=== PATIENT | female | born 1955 | race Caucasian/White ===

== ENCOUNTER → 2024-11-21 | Outpatient (CLI) | payer MEDICARE, BC, SELFPAY ==
--- NOTE | 2024-11-21 08:15 | XR_ITS ---
Examination: Screening digital mammography, bilateral Computer aided detection 3-D breast Tomosynthesis, bilateral Date and time of exam: 11/21/2024, 8:05 AM Comparisons: 11/21/2023 Indications: Screening Technique: Nonmagnified MLO, CC views of the breasts to been obtained, reconstructed from 3-D Tomosynthesis images. R2 computer aided detection program utilized for evaluation of suspicious masses and/or abnormal calcifications. 3-D Tomosynthesis images obtained. Technologist: Findings: There are scattered areas of fibroglandular density. No evidence of abnormal masses or suspicious calcifications. Impression: BI-RADS category 1: Negative findings (within normal) Recommend 1 year follow-up mammogram
== END | disposition home or self-care (01) ==
LOC: CDIM 07:57
PROVIDERS: Referring Provider Specialist; Visit Provider Specialist
DX: Z12.31 Encounter for screening mammogram for malignant neoplasm of breast (principal); R92.313 Mammographic fatty tissue density, bilateral breasts
CPT/HCPCS: 77063; 77067

== ENCOUNTER → 2025-03-30 | Outpatient (CLI) | payer MEDICARE, BC, SELFPAY ==
[2025-03-30 15:26] LABS: Basophils # (Auto) 0.1 Thou/mm3 (0.0-0.2); Basophils % (Auto) 1 % (0-2.5); Eosinophils # (Auto) 0.2 Thou/mm3 (0.0-0.5); Eosinophils % (Auto) 2 % (0-10); Hematocrit 36.4 % (36.0-46.0); Hemoglobin 12.3 g/dL (12.0-16.0); Immature Granulocytes Auto 0.02 Thou/mm3 (0.00-0.00); Lymphocytes # (Auto) 3.3 Thou/mm3 (1.0-4.8); Lymphocytes % (Auto) 43 % (10-50); Mean Corpuscular HGB Conc 33.8 g/dl (31.0-37.0); Mean Corpuscular Hemoglobin 31.2 pg (25.0-35.0); Mean Corpuscular Volume 92 fL (80-100); Monocytes # (Auto) 0.6 Thou/mm3 (0.0-0.8); Monocytes % (Auto) 7 % (0-12); Neutrophils # (Auto) 3.6 Thou/mm3 (1.8-7.7); Neutrophils % (Auto) 47 % (37-80); Nucleated Red Blood Cell # 0.00 Thou/mm3 (0.00-0.00); Nucleated Red Blood Cell % 0 /100 WBC (0); Platelet Count 214 Thou/mm3 (140-440); RDW Standard Deviation 42.2 fL (36.4-46.3); Red Blood Count 3.94 Miln/mm3 (4.00-5.20); White Blood Count 7.6 Thou/mm3 (3.6-11.0)
[2025-03-30 15:42] LABS: Alanine Aminotransferase 32 U/L (10-49); Albumin, Serum 4.6 gm/dL (3.4-4.8); Albumin/Globulin Ratio 2.6 (1.2-2.2); Alkaline Phosphatase 97 U/L (46-116); Anion Gap 10 (7-16); Aspartate Amino Transferase 30 U/L (0-34); BUN/Creatinine Ratio 18 Ratio (12-20); Bilirubin,Total 0.6 mg/dL (0.3-1.2); Blood Urea Nitrogen 14 mg/dL (9-23); Calcium 10.3 mg/dL (8.3-10.6); Calcium (Corrected) 10.3 mg/dL (8.5-10.1); Carbon Dioxide 25.8 mMol/L (20.0-31.0); Cardiac Risk Estimate 4.7 RATIO (3.7-5.6); Chloride 105 mMol/L (98-107); Cholesterol 206 mg/dL (132-200); Creatinine (Component) 0.8 mg/dL (0.6-1.3); Free T4 (Free Thyroxine) 1.37 ng/dL (0.89-1.76); Globulin 1.8 gm/dL (2.3-3.5); Glucose 91 mg/dL (74-106); HDL Cholesterol 44 mg/dL (40-60); LDL Cholesterol,Calculated 123 mg/dL (0-130); Osmolality,Calculated 281 (275-295); Potassium 3.8 mMol/L (3.4-5.1); Sodium 141 mMol/L (136-145); Thyroid Stimulating Hormone 0.25 uIU/mL (0.55-4.78); Total Protein 6.4 gm/dL (5.7-8.2); Triglycerides 194 mg/dL (30-150); eGFR > 60 See Note
[2025-03-30 15:46] LABS: Iron 123 mcg/dL (50-170); Percent Iron Saturation 39 % (20-55); Total Iron Binding Capacity 312 mcg/dL (250-425); Unsaturated Iron Binding 189 (225-295)
== END | disposition home or self-care (01) ==
LOC: COPL 14:46
PROVIDERS: PCP Specialist; Referring Provider Specialist; Visit Provider Specialist
DX: E03.8 Other specified hypothyroidism (principal); E78.2 Mixed hyperlipidemia; D63.8 Anemia in other chronic diseases classified elsewhere; R53.83 Other fatigue
CPT/HCPCS: 36415; 80053; 80061; 83540; 83550; 84439; 84443; 85025

== ENCOUNTER → 2025-04-16 | Outpatient (CLI) | payer MEDICARE, BC, SELFPAY ==
[2025-04-16 07:44] LABS: Calcium, Ionized 4.8 mg/dL (4.6-5.6)
[2025-04-16 08:10] LABS: Parathyroid Hormone Intact 48.8 pg/ml (18.5-88.0)
[2025-04-16 08:13] LABS: Vitamin D 25 Hydroxy Total 45.0 ng/mL (7.3-40.2)
== END | disposition home or self-care (01) ==
LOC: COPL 07:11
PROVIDERS: PCP Specialist; Referring Provider Specialist; Visit Provider Specialist
DX: E83.51 Hypocalcemia (principal)
CPT/HCPCS: 36415; 82306; 82330; 83970

== ENCOUNTER → 2025-06-24 | Outpatient (CLI) | payer MEDICARE, BC, SELFPAY ==
[2025-06-24 15:47] LABS: Free T4 (Free Thyroxine) 1.45 ng/dL (0.89-1.76); Thyroid Stimulating Hormone 0.40 uIU/mL (0.55-4.78)
[2025-06-24 16:53] LABS: Parathyroid Hormone Intact 43.4 pg/ml (18.5-88.0)
[2025-07-01 06:23] LABS: T3,Total* 94 ng/dL (76-181); Vitamin D, 25-OH, D2 <4 ng/mL; Vitamin D, 25-OH, D3 36 ng/mL; Vitamin D, 25-OH, Total 36 ng/mL (30-100)
== END | disposition home or self-care (01) ==
LOC: COPL 14:43
PROVIDERS: PCP Specialist; Referring Provider Specialist; Visit Provider Specialist
DX: E03.9 Hypothyroidism, unspecified (principal); R82.994 Hypercalciuria
CPT/HCPCS: 36415; 82306; 83970; 84439; 84443; 84480